=== PATIENT | male | born 1980 | race African-American/Black ===

== ENCOUNTER 2024-01-02 21:26 | Emergency (ER) | payer OTHER, SELFPAY ==
[2024-01-02 21:33] VITALS: BP 127/81; PULSE 69; RESP 16; TEMP 36.1; O2SAT 94; BMI 31.6
--- NOTE | 2024-01-02 21:43 | ED.CHESTPAIN ---
HPI - Chest Pain General Time Seen by Provider: 21:44 Date Seen: 01/02/24 Chief Complaint: Chest Pain Stated Complaint: Chest pains, left side Time Seen by Provider: 01/02/24 21:43 Source: patient and RN notes reviewed Mode of arrival: ambulatory Limitations: no limitations History of Present Illness HPI narrative: This 43-year-old male is coming in with left substernal chest pain. He is noting a sharp pain but then it will go into an underlying dull ache, states it almost feels like something is moving around there at times. He feels worse if he tries to lay down at night. He will feel it sometimes walking around during the day. He really did not sleep last night until late into the night around 3 or 4:00 a.m. because of it. He felt worse if he went on to his stomach. He has not noted any change with breathing. He has had no reflux symptoms, no regurgitant symptoms, no nausea or vomiting, no heartburn. There has been no fevers or chills, no night sweats. He is not short of breath. He has tried some Tylenol, did help some, took at 8:30 pm. He maybe thinks he has had some mild symptoms like this before. He does not smoke. No recent alcohol use but will use alcohol occasionally. No illicit drug use. No prior cardiac or pulmonary history. He does not carry a diagnosis of hypertension or hyperlipidemia. 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 He does live in [facility]. Pain did start at rest when he 1st noted it. There has been no trauma. He does not know his family history, was adopted. The only medicine he uses is a generic erectile dysfunction drug. He has never had any chest symptoms after taking this medicine. Related Data Home Medications ?Medication ?Instructions ?Recorded ?Confirmed No Known Home Medications 01/02/24 01/02/24 Allergies Allergy/AdvReac Type Severity Reaction Status Date / Time No Known Drug Allergies Allergy Verified 01/02/24 21:39 Review of Systems Status of ROS Reports: 6 or more systems reviewed and unremarkable except as noted in History and below Exam Const Vital Signs, click to edit/add: Vital Signs - 24 hr 01/02/24 21:33 01/02/24 22:21 Temperature 97.0 F L Pulse Rate [Left Pulse Oximeter] 69 Respiratory Rate 16 Blood Pressure [Right Upper Arm] 127/81 Pulse Oximetry 94 94 Oxygen Delivery Method Room Air He is a very pleasant 43-year-old gentleman that does seem tired but is otherwise alert and interactive, no apparent distress. Sclera clear, conjugate gaze, symmetrical facial function. Able to speak in complete sentences, speech normal. Neck is supple, no jugular venous distension, no cervical adenopathy, no thyromegaly masses or nodules. Lungs are clear, good air entry, no wheezing or crackles. CV regular rate and rhythm, no murmur, normal S1-S2, no S3-S4. He has no reproducible chest wall tenderness. Abdomen is soft, nontender, no rebound or guarding, no organomegaly. He has no lower extremity edema. Documenting provider has reviewed patient's vital signs: yes Course Course ED Course: This patient will be on cardiac monitoring, pulse oximetry, will get an EKG. Will try some IV Toradol for symptom control. Will get a full complement of labs including D-dimer. Did discuss various cardiac conditions and pulmonary conditions. This does not sound like pleurisy, doubt pneumothorax. Pericarditis is certainly a possibility. Will look at acute coronary syndrome, consider dissection and other vascular and cardiac etiologies. Patient is currently hemodynamically stable. Reevaluation(s) Time of Reevaluation #1: 23:51 Reevaluation #1: Reviewed with patient his negative chest x-ray, normal EKG without any changes, normal labs including troponin as well as inflammatory markers. His D-dimer was normal. The Toradol has greatly improved his symptoms, was sleeping in nearly lying flat. Did do a ultrasound with the cardiac probe. I do not see any evidence of a pericardial effusion. I did review with patient that I would not consider myself an expert in echo. He understands that I may not be able to tell if there is minimal to very small effusion. I certainly do not see anything large or concerning for effusion that would cause him to need hospitalization. He is not seemingly meeting criteria for pericarditis but it is certainly consideration with his presentation. He will be here for about another 2-3 weeks. Will have him try some Toradol. If he has recurrent symptoms are worsening, he is aware he is going to need to seek re-evaluation. Vital Signs Vital signs: Initial Vital Signs Temperature 97.0 F L 01/02/24 21:33 Temperature Source Temporal Artery Scan 01/02/24 21:33 Pulse Rate 69 01/02/24 21:33 Pulse Rhythm Regular 01/02/24 21:33 Respiratory Rate 16 01/02/24 21:33 Blood Pressure 127/81 01/02/24 21:33 Blood Pressure Mean 96 01/02/24 21:33 Blood Pressure Position Sitting 01/02/24 21:33 Pulse Oximetry 94 01/02/24 21:33 Oxygen Delivery Method Room Air 01/02/24 21:33 Vital Signs Temperature 97.0 F L 01/02/24 21:33 Pulse Rate 69 01/02/24 21:33 Respiratory Rate 16 01/02/24 21:33 Blood Pressure 127/81 01/02/24 21:33 Pulse Oximetry 94 01/02/24 21:33 Oxygen Delivery Method Room Air 01/02/24 21:33 Temperature 97.0 F L 01/02/24 21:33 Pulse Rate 69 01/02/24 21:33 Respiratory Rate 16 01/02/24 21:33 Blood Pressure 127/81 01/02/24 21:33 Pulse Oximetry 94 01/02/24 22:21 Oxygen Delivery Method Room Air 01/02/24 21:33 Medications Administered Medications: Discontinued Medications Generic Name Dose Route Start Last Admin Trade Name Freq PRN Reason Stop Dose Admin Ketorolac Tromethamine 15 mg 01/02/24 21:53 01/02/24 22:16 Ketorolac 15 Mg/Ml Inj IVP 01/02/24 21:54 15 mg ONCE ONE Administration MDM - Chest Pain Lab Data Attestation: I reviewed the patient's lab results. Labs: Lab Results 01/02/24 Range/Units 22:02 WBC 7.25 (4.50-11.00) K/uL RBC 5.16 (4.30-5.90) m/uL Hgb 14.1 (13.5-17.5) gm/dL Hct 43.3 (37.0-53.0) % MCV 84 (80-100) fL MCH 27 (26-34) pg MCHC 33 (32-36) gm/dL RDW Coeff of [place] 14.0 (11.5-15.5) % Plt Count 300 (140-440) K/uL Neut % (Auto) 43.3 (42.0-72.0) % Lymph % (Auto) 39.4 (20-44) % [place] % (Auto) 11.9 H (0.0-11.0) % Eos % (Auto) 4.8 (0.0-7.0) % Baso % (Auto) 0.6 (0.0-3.0) % Neut # (Auto) 3.14 (1.7-7.0) K/uL Lymph # (Auto) 2.86 (0.90-2.90) K/uL [place] # (Auto) 0.90 (0.00-0.90) K/UL Eos # (Auto) 0.35 (0.00-0.50) K/uL Baso # (Auto) 0.04 (0.00-0.30) K/uL Abs Immat Gran (auto) 0.00 (0.00-0.30) K/uL Imm/Tot Granulo (auto) 0.0 % D-Dimer Quant (PE/DVT) 0.27 (0.00-0.50) ug/ml Sodium 139 (135-149) mmol/L Potassium 3.8 (3.6-5.1) mmol/L Chloride 108 (96-114) mmol/L Carbon Dioxide 26 (20-32) mmol/L Anion Gap 5 L (7-15) mEq/L BUN 19 (5-24) mg/dL Creatinine 1.0 (0.5-1.5) mg/dL Estimated Creat Clear 114.53 Estimated GFR 95 ml/min Glucose 111 (60-115) mg/dL Lactate 1.2 (0.5-1.9) mmol/L Calcium 8.8 (8.4-10.6) mg/dL Total Bilirubin 0.7 (0.1-1.5) mg/dL AST 30 (12-35) U/L ALT 32 (4-50) U/L Alkaline Phosphatase 90 (40-150) U/L Troponin I < 0.01 L (0.01-0.04) ng/mL C-Reactive Protein 1.1 H (0.5-1.0) mg/dL NT-Pro-B Natriuret Pep < 20 pg/mL Total Protein 8.1 (6.0-8.3) g/dL Albumin 4.4 (3.3-5.0) g/dL Lipase 125 (23-300) U/L Imaging Data Chest x-ray: Attestation: I have reviewed the pertinent imaging results. My impression: I see no evidence of any pleural effusion, no cardiomegaly, no infiltrate, no pneumothorax on my preliminary review of this portable chest x-ray. Radiologist's impression: Patient: ONDINA MCNEAL Facility:?[facility] Patient ID:?[id number] Site Patient ID:?[id number]. Site :?[id number] Study:?XRay-Chest PORTABLE-01/02/2024 10:33:05 PM Ordering Physician:?Skyler Bliss Final Report: INDICATION: Chest pain. TECHNIQUE: Chest radiograph, 1 view. COMPARISON: None. FINDINGS: Cardiovascular/Mediastinum: Normal heart size. Unremarkable. Lungs: No focal consolidation. Linear bandlike opacifications of the lungs bilaterally, likely subsegmental atelectasis and/or scarring. Airways: Trachea remains midline. Pleura: No pleural effusions or pneumothorax. Bones: No acute osseous abnormalities. Upper abdomen: Unremarkable. IMPRESSION: No acute cardiopulmonary process. Dictated by Bradely Burgess MD @ 01/02/2024 10:55:40 PM (Electronic Signature) ECG Data Attestation: I personally reviewed and interpreted this ECG as follows: (Normal sinus rhythm, 65 beats per minute. No evidence of any ischemia or infarct. QT corrected 411 milliseconds.) ECG interpretation date: 01/02/24 ECG interpretation time: 22:14 Prior ECG tracings: not available for review Discharge Plan Discharge Clinical Impression: Chest pain Qualifiers: Chest pain type: other chest pain Qualified Code(s): R07.89 - Other chest pain Patient Disposition: Home, Self-Care Condition: Stable Instructions: Chest Pain (ED), Acute Pericarditis (ED) Additional Instructions: Can try Toradol per prescription, 20 prescribed from [facility]. Can supplement with Tylenol if needed. Take the Toradol with food to help protect your stomach, this is an NSAID. If your symptoms are worsening, return after completion of the Toradol, develops fever, respiratory symptoms or shortness of breath with this, have other concerns with her symptoms, please seek re-evaluation. Your chest pain does seem to be consistent with a condition called pericarditis but you do not meet other diagnostic criteria at this time. You should seek re-evaluation if her symptoms continue or are worsening. Activity Level: Activity as Tolerated Prescriptions: No Action No Known Home Medications Follow Up/Referrals: Provider,Not a Local [Primary Care Provider] - Stand Alone Forms: My [employer] Info Instructions
--- NOTE | 2024-01-02 21:53 | CRLHL7_ITS ---
For Patients: As a result of the Century Cures Act, medical imaging exams and procedure reports are released immediately into your electronic medical record. You may view this report before your referring provider. If you have questions, please contact your health care provider. INDICATION: Chest pain. TECHNIQUE: Chest radiograph, 1 view. COMPARISON: None. FINDINGS: Cardiovascular/Mediastinum: Normal heart size. Unremarkable. Lungs: No focal consolidation. Linear bandlike opacifications of the lungs bilaterally, likely subsegmental atelectasis and/or scarring. Airways: Trachea remains midline. Pleura: No pleural effusions or pneumothorax. Bones: No acute osseous abnormalities. Upper abdomen: Unremarkable. IMPRESSION: No acute cardiopulmonary process. Dictated by Bradley Burgess MD @ 01/02/2024 10:55:40 PM (Electronically Signed)
[2024-01-02 22:10] LABS: Lactate* 1.2 mmol/L (0.5-1.9)
[2024-01-02 22:12] LABS: Basophils Absolute Auto 0.04 K/uL (0.00-0.30); Basophils Percent Auto 0.6 % (0.0-3.0); Eosinophils Absolute Auto 0.35 K/uL (0.00-0.50); Eosinophils Percent Auto 4.8 % (0.0-7.0); Hematocrit 43.3 % (37.0-53.0); Hemoglobin* 14.1 gm/dL (13.5-17.5); Lymphocytes Absolute Auto 2.86 K/uL (0.90-2.90); Lymphocytes Percent Auto 39.4 % (20-44); Mean Corpuscular HGB Conc 33 gm/dL (32-36); Mean Corpuscular Hemoglobin 27 pg (26-34); Mean Corpuscular Volume 84 fL (80-100); Monocytes Percent Auto 11.9 % (0.0-11.0); Neutrophils Absolute Auto 3.14 K/uL (1.7-7.0); Neutrophils Percent Auto 43.3 % (42.0-72.0); Platelet Count* 300 K/uL (140-440); Red Blood Count 5.16 m/uL (4.30-5.90); White Blood Count* 7.25 K/uL (4.50-11.00)
[2024-01-02 22:13] LABS: Slide Review Reflex No
[2024-01-02] MEDS: KETOROLAC 15 MG/ML inj IVP (22:16)
[2024-01-02 22:21] VITALS: O2SAT 94
[2024-01-02 22:25] LABS: Chloride* 108 mmol/L (96-114)
[2024-01-02 22:26] LABS: Albumin* 4.4 g/dL (3.3-5.0); Sodium* 139 mmol/L (135-149)
[2024-01-02 22:27] LABS: Potassium* 3.8 mmol/L (3.6-5.1)
[2024-01-02 22:29] LABS: Alkaline Phosphatase* 90 U/L (40-150); Anion Gap 5 mEq/L (7-15); Aspartate Amino Transferase* 30 U/L (12-35); Bilirubin Total* 0.7 mg/dL (0.1-1.5); Carbon Dioxide* 26 mmol/L (20-32); Est. Creatinine Clearance* 114.53; Estimated Glomerular Filt Rate 95 ml/min; Lipase* 125 U/L (23-300); Total Protein* 8.1 g/dL (6.0-8.3)
[2024-01-02 22:30] LABS: Alanine Aminotransferase* 32 U/L (4-50); Blood Urea Nitrogen* 19 mg/dL (5-24); Calcium* 8.8 mg/dL (8.4-10.6); Glucose* 111 mg/dL (60-115)
[2024-01-02 22:32] LABS: C Reactive Protein* 1.1 mg/dL (0.5-1.0)
[2024-01-02 22:33] LABS: D Dimer Quantitative* 0.27 ug/ml (0.00-0.50)
[2024-01-02 22:47] LABS: NT Pro B Type NatriureticPept* < 20 pg/mL; Troponin I* < 0.01 ng/mL (0.01-0.04)
== END 2024-01-03 00:08 | disposition home or self-care (01) ==
PROVIDERS: Emergency Provider Family Medicine
DX: R07.9 Chest pain, unspecified (principal)
CPT/HCPCS: 36415; 71045; 80053; 83605; 83690; 83880; 84484; 85025; 85379; 86140; 93005; 94761; 96374; 99284; 99285; J1885